=== PATIENT | male | born 1950 | race Caucasian/White ===

== ENCOUNTER → 2016-06-16 | Outpatient (CLI) | payer OTHER | END | disposition home or self-care (01) | LOC: PCVCIMAG 12:47 | PROVIDERS: ATTEND Internal Medicine | DX: I25.10 Atherosclerotic heart disease of native coronary artery without angina pectoris (principal); I21.3 ST elevation (STEMI) myocardial infarction of unspecified site; Z87.891 Personal history of nicotine dependence | CPT/HCPCS: 93005; 93308; 93325 ==

== ENCOUNTER → 2016-07-24 | Outpatient (CLI) | payer OTHER | END | disposition home or self-care (01) | LOC: PCVCIMAG 09:03 | PROVIDERS: ATTEND Internal Medicine | DX: I25.10 Atherosclerotic heart disease of native coronary artery without angina pectoris (principal); I25.5 Ischemic cardiomyopathy; I10 Essential (primary) hypertension; E78.00 Pure hypercholesterolemia, unspecified; F17.200 Nicotine dependence, unspecified, uncomplicated | CPT/HCPCS: 80061; 93308 ==

== ENCOUNTER → 2016-09-11 | Outpatient (CLI) | payer OTHER | LOC: PCVCIMAG 09:36 | PROVIDERS: ATTEND Internal Medicine | DX: I25.10 Atherosclerotic heart disease of native coronary artery without angina pectoris (principal); I10 Essential (primary) hypertension; E78.00 Pure hypercholesterolemia, unspecified; I25.5 Ischemic cardiomyopathy; F17.200 Nicotine dependence, unspecified, uncomplicated | CPT/HCPCS: 93306 ==

== ENCOUNTER → 2017-04-12 | Outpatient (CLI) | payer OTHER ==
[~2017-04-12] MED LIST: REGADENOSON 0.4 MG/5 ML DISP.SYRIN. IV ONE
--- NOTE | 2017-04-12 13:19 | PCVCIMAG ---
APPROVED REPORT Exam: Nuclear Stress Test Indication: Ischemic cardiomyopathy, Patient Location: Out-Patient Stress Nurse: Margie Sanon RN, Georgina Tubbs RN MI Tech:Grady Peters NMTCB Ht: 6 ft 1 in Wt: 200 lbs BSA: 2.15 m2 HR: 67 bpm BP: 118/65 mmHg BMI: 26.3 Rhythm: SR Medical History Medical History: Age, COPD, CA, Smoker, ICD in situ Medications: ASA, Atorvastatin, Carvedilol (held 24 hours) Effient, Spironolactone Allergies: NKDA Previous Cardiac Procedures: Prior STEMI with Cardiac arrest Pretest Chest Pain Characteristics: No chest pain Exercise History: Physically active NM EXAM: Myocardial Perfusion REST/STRESS Imaging Protocol: Rest Tc-99m/Stress Tc-99m 1 day Resting Data Rest SPECT myocardial perfusion imaging was performed in supine position 45 minutes following the intravenous injection of 11.3 mCi of Tc-99m Sestamibi. Time of rest injection: 0945 Date: 04/12/2017 Administration Route: IV Administration Site: Left AC Pharmacologic Stress Pharmacologic stress test was performed by injecting Regadenoson 0.4 mg IV push followed by the intravenous injection of 33.9 mCi of Tc-99m Sestamibi. Time of stress injection: 1100 Date: 04/12/2017 Administration Route: IV Administration Site: Left AC Gated Stress SPECT was performed 45 minutes after stress injection. The images were gated to evaluate regional wall motion and calculate left ventricular ejection fraction. Study Quality Study: Good Study Data Post stress, the left ventricular ejection was 39%.. SSS: 22 SRS: 20 SDS: 2 TID = 0.98. 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 Wall Motion Moderate ventricular chamber dilatation. Moderately decreased left ventricular systolic function. 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 Post stress, the left ventricular ejection was 39%. No prior study available for comparison. Interpreted by: Peter Curiel MD Electronically Approved: 04/12/2017 13:15:22 Stress Test Details Stress Test: Pharmacologic stress was paired with low level exercise. Reason for pharmacologic stress test: PPM. HR Resting HR: 67 bpmMax Heart Rate (APMHR): 154 bpm Max HR Achieved: 93 bpmTarget HR (85% APMHR): 130 bpm % of APMHR: 60 Recovery HR: 75 bpm BP Resting BP: 118/65 mmHg Max BP: 120/65 mmHg ECG Resting ECG: Sinus Rhythm with septal infact Stress ECG: Sinus Rhythm ST Change: None Maximum ST Deviation: 0 mm Arrhythmia: None Recovery ECG: Sinus Rhythm Recovery ST Change: None Recovery ST Deviation: 0 mm Clinical Reason for Termination: Completed protocol Stress Symptoms: Dyspnea Exercise duration: min 55 sec Exercise capacity: 1.0 METs Symptoms resolved over time Stress ECG Conclusion ECG: Non-ischemic Clinical: Non-ischemic <Conclusion> ECG: Non-ischemic Clinical: Non-ischemic
== END | disposition home or self-care (01) ==
LOC: PCVCIMAG 09:21
PROVIDERS: ATTEND Internal Medicine
DX: I25.5 Ischemic cardiomyopathy (principal); J44.9 Chronic obstructive pulmonary disease, unspecified; I21.9 Acute myocardial infarction, unspecified; F17.200 Nicotine dependence, unspecified, uncomplicated
CPT/HCPCS: 78452; 93017; A9500; J2785